=== PATIENT | female | born 1970 | race Caucasian/White ===

== ENCOUNTER 2017-02-17 21:29 | Emergency (ER) | payer BC ==
[2017-02-17 21:44] VITALS: BP 173/91
[2017-02-17] MEDS ORDERED: HYDROmorphone 1 MG/ML Syringe IM ONE (21:56)
[2017-02-17] MEDS ORDERED: predniSONE 20 MG Tab PO ONE (21:57)
[2017-02-17] MEDS ORDERED: Promethazine 25 MG/ML SDV IM ONE (21:57)
--- NOTE | 2017-02-17 22:04 | EDM.PDOC ---
ED HPI GENERAL MEDICAL PROBLEM - General Chief Complaint: Back Pain or Injury Stated Complaint: BACK PAIN Time Seen by Provider: 02/17/17 21:56 Source of Information: Reports: Patient History Limitations: Reports: No Limitations - History of Present Illness INITIAL COMMENTS - FREE TEXT/NARRATIVE: 46-year-old female presents to the ED with acute exacerbation of her chronic low back pain. Patient has severe scoliosis of the thoracic and lumbar spine. She had newton fixation at age 10 and for whatever reason the rods were removed at age 30. Subsequently she has redeveloped her severe scoliosis. He lives with chronic low back pain taking Tylenol when necessary. Yesterday while walking her dog the dog suddenly took off and jerked her severely. This caused an exacerbation of pain in her left lower back which radiates into her left but talk. She did not sleep at all last day due to the severity of the pain and pain is worse today. Radiates into the but talk and posterior thigh but not below the knee. She did not fall or suffer any other injuries. She been taking Tylenol home today with no relief. Onset: Sudden Onset Date: 02/16/17 Onset Time: 22:00 Duration: Hour(s): Location: Reports: Back (Lower back) Quality: Reports: Ache, Burning (Radiates into the left but talk and posterior thigh), Pressure, Sharp, Stabbing, Throbbing Severity: Severe (Rates it as 910.) Improves with: Reports: None Worsens with: Reports: Movement Context: Reports: Activity (Was out walking the dog when the dog took off giving her a sudden jerk injuring her lower back) Associated Symptoms: Reports: No Other Symptoms, Other (No problems with bowel or bladder control just getting on and off the toilet.) Treatments [employer]GER: Reports: Acetaminophen Other Treatments 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 lower back Pain Score (Numeric/FACES): 10 - Related Data Allergies Allergy/AdvReac Type Severity Reaction Status Date / Time Sulfa (Sulfonamide Allergy Rash Verified 02/17/17 21:45 Antibiotics) Home Meds: Home Meds oxyCODONE HCl/Acetaminophen [Percocet 5-325 mg Tablet] 1 - 2 each PO Q4H PRN # 30 tablet 02/17/17 [Rx] predniSONE [Deltasone] 20 mg PO ASDIRECTED #15 tablet 02/17/17 [Rx] Past Medical History - Past Health History Medical/Surgical History: Denies Medical/Surgical History HEENT History: Reports: Impaired Vision Musculoskeletal History: Reports: Back Pain, Chronic, Other (See Below) ( Patient has severe scoliosis. She had rodding of her back at age 10 and was removed at age 30 when they felt that she had finished growing. Unfortunately over the last 15 years her back is returned to severe scoliosis position.) - Past Surgical History Neurological Surgical History: Reports: Scoliosis, Other (See Below) (Patient had extensive spinal surgery for scoliosis at age 10 where she had both sides rodded. Rods were removed at age 30.) Musculoskeletal Surgical History: Reports: Other (See Below) Other Musculoskeletal Surgeries/Procedures:: back surgery, scoliosis surgery Social & Family History - Family History Family Medical History: Noncontributory - Tobacco Use Smoking Status *Q: Current Every Day Smoker Years of Tobacco use: 10 Packs/Tins Daily: 0.2 - Caffeine Use Caffeine Use: Reports: Coffee, Soda - Recreational Drug Use Recreational Drug Use: No - Living Situation & Occupation Living situation: Reports: Occupation: Unemployed ED ROS GENERAL - Review of Systems Review Of Systems: See Below Constitutional: Reports: Fatigue. Denies: Fever, Chills, Malaise, Weakness HEENT: Reports: Glasses (From not sleeping last night.) Respiratory: Reports: No Symptoms, Other (She does have a component of restrictive lung disease due to her severe scoliosis of the thoracic spine.) Cardiovascular: Reports: No Symptoms Endocrine: Reports: No Symptoms GI/Abdominal: Reports: No Symptoms : Reports: No Symptoms Musculoskeletal: Reports: Back Pain (Chronic severe low back pain secondary to severe scoliosis of the thoracic and lumbar spine.) Skin: Reports: No Symptoms Neurological: Reports: Other (Currently has burning referred pain into her left but talk from referred pain from the lower back) Psychiatric: Reports: No Symptoms Hematologic/Lymphatic: Reports: No Symptoms Immunologic: Reports: No Symptoms ED EXAM,LOWER BACK PAIN/INJURY - Physical Exam Exam: See Below Exam Limited By: Physical Impairment (She is severely impaired because of her back pain. She cannot stand erect and she walks like a really old lady.) General Appearance: Alert, WD/WN, Moderate Distress Back Exam: Other (Patient has severe scoliosis of the thoracal lumbar spine. Concave curve to the left of the thoracic spine and convex curve to the right on the lumbar spine. Pain is well localized to th L4-L5 and L5-S1 facet joint on the left side. Also the superior half of the SI joint on the left side is inflamed.) Extremities: Normal Inspection, Normal Range of Motion, Non-Tender, No Pedal Edema, Normal Capillary Refill Neurological: Alert, Normal Mood/Affect, Normal Dorsiflexion, CN II-XII Intact, Oriented x 3. No: Normal Gait, Normal Reflexes, No Motor/Sensory Deficits Psychiatric: Normal Affect Skin Exam: Warm, Dry, Intact, Normal Color, No Rash Course - Vital Signs Last Recorded V/S: Last Vital Signs Temp 36.3 C 02/17/17 21:41 Pulse 81 02/17/17 21:41 Resp 18 02/17/17 21:41 BP 173/91 H 02/17/17 21:41 Pulse Ox 97 02/17/17 21:41 - Orders/Labs/Meds Meds: Medications Discontinued Medications Generic Name Dose Route Start Last Admin Trade Name Cyq PRN Reason Stop Dose Admin Hydromorphone HCl 1 mg 02/17/17 21:56 02/17/17 22:03 Dilaudid IM 02/17/17 21:57 1 mg ONETIME ONE Administration Prednisone 20 mg 02/17/17 21:57 02/17/17 22:03 Prednisone PO 02/17/17 21:58 20 mg ONETIME ONE Administration Promethazine HCl 25 mg 02/17/17 21:57 02/17/17 22:03 Phenergan IM 02/17/17 21:58 25 mg ONETIME ONE Administration - Radiology Interpretation Free Text/Narrative:: 46-year-old female presents to the ED with acute exacerbation of chronic low back pain. Patient has severe scoliosis of the thoracolumbar spine having had newton surgery bilaterally done at age 10 and then for whatever reason they rise removed at age 30. He suddenly has developed the scoliosis curvature over the last 15 years. At any rate back pain was exacerbated by her dog giving her sudden jerk last night while she had amount for a walk. She has increased pain left lower back radiating to the left but talk and posterior thigh. She never slept last night and pain is severe today and unrelenting. Described as burning hot stabbing and spastic at times. She has troubles getting on and off the toilet. But she states her bowel and bladder function are normal. Examination reveals pain over the L4-L5 and L5-S1 facet joints on the left side and pain in the superior aspect of the left SI joint. Particularly of the left-sided sciatic notch. Clinically she does not have any nerve root entrapment. Plan she' ll be given IM injection of Dilaudid 1 mg with Phenergan 25 mg for acute pain relief and sedation. She will be given a prescription for Percocet 5/3/25 milligram tablets one or 2 every 4-6 hours for pain relief 30 tabs provided. Prednisone 20 mg breakfast and supper for 5 days then 1 tablet in the morning only for another 5 days. She will use Motrin 600 mg every 6 hours at home for relief of pain and inflammation. Ice pack today for the next 24 hours and then heat pack to the area. Departure - Departure Time of Disposition: 22:00 Disposition: Home, Self-Care 01 Condition: Fair Clinical Impression: Lumbar back sprain Qualifiers: Encounter type: initial encounter Qualified Code(s): S33.5XXA - Sprain of ligaments of lumbar spine, initial encounter - Discharge Information Prescriptions: oxyCODONE HCl/Acetaminophen [Percocet 5-325 mg Tablet] 1 - 2 each PO Q4H PRN # 30 tablet PRN Reason: pain relief. predniSONE [Deltasone] 20 mg PO ASDIRECTED #15 tablet Referrals: PCP,Not In Area [Primary Care Provider] - Forms: ED Department Discharge Additional Instructions: Evaluation in the emergency room tonight in regards to acute exacerbation of chronic low back pain. Severe scoliosis of the thoracic and lumbar spine appreciated with previous surgical fixation and then removal of the rods. Acute exacerbation occurred from sudden jerking movement by her dog on a leash yesterday. Examination reveals pain localized to the L5-S1 facet joint on the left side and particularly pain in the superior aspect of the sacroiliac joint on the left side. We call this acute facet joint strain. It is unlikely that there is any injury to the underlying disc. Referred pain into the but talk and posterior thigh usually occurs with this type of injury. Treatment is time to heal. Muscle spasm usually worsens over a period of 48 hours after injury and then slowly starts to improve. Suggest treatment with ice pack to the back for one half hour out of every 4 hours today .After 48 hours post injury heat pack to the area. Treatment is Motrin 600 mg every 6 hours to relieve pain and inflammation. Prescription written for pain medication Percocet 10/10/24 milligrams one or 2 every 4-6 hours to relieve pain. If you need them longer than 3-4 days she will likely need a stool softener or MiraLAX powder once daily to prevent secondary constipation. Second prescription is Deltasone which is a steroid to reduce inflammation in the low back. Note the [employer] machine gave view 5 more tablets than you actually require. It will not allow me to write the prescription as I desire. Please follow my directions for use of this medication .This is to be taken 20 mg with breakfast and supper for 5 days then 1 tablet in the morning only for another 5 days. Previous will return you to your normal state of back health in 10 days' time.
== END 2017-02-17 22:20 | disposition home or self-care (01) ==
LOC: JD.ED 21:29
DX: S33.5XXA Sprain of ligaments of lumbar spine, initial encounter (principal); F17.210 Nicotine dependence, cigarettes, uncomplicated; Z88.2 Allergy status to sulfonamides; X50.0XXA Overexertion from strenuous movement or load, initial encounter
CPT/HCPCS: 96372; 99283; A9270; J1170; J2550